=== PATIENT | male | born 1955 | race Caucasian/White ===

== ENCOUNTER 2023-02-04 10:36 | Emergency (ER) | payer OTHER ==
[~2023-02-04] VITALS: Ht 170.2 cm; Wt 83.9 kg
[2023-02-04 10:55] VITALS: BP 133/84
--- NOTE | 2023-02-04 11:33 | NUR ---
TO BED 12 VIA WC NO DISTRESS, NO DIFFICULTY
--- NOTE | 2023-02-04 11:43 | NUR ---
PT SENT BY PCP TO R/O DVT, SWELLING TO BILAT LEGS X 5DYS. NO ACUTE DISTRESS.
[2023-02-04] MEDS ORDERED: cephALEXin 500 MG CAP PO ONE (12:15)
[2023-02-04] MEDS ORDERED: CEPH-588 PO (12:24)
[2023-02-04 12:37] VITALS: BP 128/62
--- NOTE | 2023-02-04 12:38 | NUR ---
The patient's care was reviewed and supervised by ED Agency Nurse 8, RN, RN.
== END 2023-02-04 12:37 | disposition home or self-care (01) ==
LOC: MED 10:36
DX: L03.115 Cellulitis of right lower limb (principal); Z79.899 Other long term (current) drug therapy
CPT/HCPCS: 93971; 99284; Q0092

== ENCOUNTER 2023-04-19 02:26 | Emergency (ER) | payer OTHER ==
[~2023-04-19] VITALS: Ht 172.7 cm; Wt 117.9 kg
[~2023-04-19 02:26] MED LIST: CEPH-588 PO
[2023-04-19 02:33] VITALS: BP 144/96; PULSE 114; RESP 26; TEMP 98.1; O2SAT 94
--- NOTE | 2023-04-19 02:37 | NUR ---
PT. TO BED 03
[2023-04-19 03:14] LABS: ALBUMIN 3.6 g/dL (3.4-5.0); ANION GAP 17.4 (8-16); CREATININE 1.2 mg/dL (0.6-1.3); POTASSIUM 3.4 mmol/L (3.5-5.1); TOTAL BILIRUBIN 0.5 mg/dL (0.0-1.0)
[2023-04-19 03:15] LABS: BASOPHILS # (AUTO) 0.1 K/uL (0.00-0.22); BASOPHILS % (AUTO) 1.1 % (0.0-2.0); EOSINOPHILS # (AUTO) 0.1 K/uL (0-0.4); EOSINOPHILS % (AUTO) 1.1 % (0.0-4.0); HEMATOCRIT 40.5 % (36-52); HEMOGLOBIN 13.8 g/dL (12.0-18.0); LYMPHOCYTES # (AUTO) 3.1 K/uL (2.0-11.5); LYMPHOCYTES % (AUTO) 28.3 % (20.5-51.1); MEAN CORPUSCULAR HEMOGLOBIN 32 pg (27-31); MEAN CORPUSCULAR HGB CONC 34 g/dL (33-37); MEAN CORPUSCULAR VOLUME 93.8 fL (80-94); MONOCYTES # (AUTO) 1.1 K/uL (0.8-1.0); MONOCYTES % (AUTO) 9.6 % (1.7-9.3); NEUTROPHILS # (AUTO) 6.6 K/uL (1.8-7.7); NEUTROPHILS % (AUTO) 59.9 % (42.2-75.2); PLATELET COUNT (AUTO) 240 K/uL (140-450); RED BLOOD CELL COUNT(AUTO) 4.32 MIL/uL (4.20-6.10); RED CELL DISTRIBUTION WIDTH 13.7 % (11.6-13.7)
[2023-04-19 03:33] VITALS: O2SAT 98
[2023-04-19] MEDS ORDERED: cefTRIAXone 1,000 MG VIAL ONE (03:40)
--- NOTE | 2023-04-19 03:40 | NUR ---
67 YO M BIB FAMILY C/O SOB AND CP X 2 DAYS. PT AXO4. 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 PT STATES CP 8/10 NON RADIATING. PT ON 2 L/NC FOR SPO2 92% SUSTAINED. SIDE RAILS UP X2. CALL LIGHT WITHIN REACH. NKDA HX DM1
--- NOTE | 2023-04-19 04:07 | NUR ---
PENDING ADMISSION . PT AND FAMILY AWARE. AT BEDSIDE. PT ON BEDSIDE CARIDAC MONITOR. CALL LIGHT WITHIN REACH OF PT .
[2023-04-19] MEDS ORDERED: AZITHROMYCIN 500 MG in DEXTROSE 5% 250 ML IV ONE (04:35)
[2023-04-19] MEDS ORDERED: METF-346 PO (04:37)
[2023-04-19] MEDS ORDERED: CLON0.1T16 PO (04:37)
[2023-04-19] MEDS ORDERED: ASPI-1822 PO (04:37)
[2023-04-19] MEDS ORDERED: SEMA1PEN3 SQ (04:37)
[2023-04-19] MEDS ORDERED: AMLO10TA PO (04:37)
[2023-04-19] MEDS ORDERED: ATOR10TA PO (04:37)
[2023-04-19] MEDS ORDERED: FENO134C23 PO (04:37)
[2023-04-19] MEDS ORDERED: LOSA100T2 PO (04:37)
[2023-04-19] MEDS ORDERED: AZITHROMYCIN 500 MG INJ VIAL IV ONE (05:04)
[2023-04-19 05:23] LABS: APPEARANCE,URINE CLEAR (CLEAR); BILIRUBIN,URINE NEGATIVE (NEGATIVE); BLOOD, URINE NEGATIVE (NEGATIVE); COLOR,URINE YELLOW (YELLOW); LEUKOCYTE ESTERASE ,URINE NEGATIVE (NEGATIVE); NITRITE, URINE NEGATIVE (NEGATIVE); UGLUCOSE NEGATIVE (NEGATIVE)
[2023-04-19 05:53] VITALS: O2SAT 95
--- NOTE | 2023-04-19 06:05 | NUR ---
BED ASSIG PENDING AFTER CHANGE OF SHIFT. PT AND FAMILY AWARE. PT IS RESTING WITH HOB ELEVATED. 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 AUDIABLE WHEEZES NOTED. SPO2 95% 2L NC. AT BED SIDE
--- NOTE | 2023-04-19 06:05 | NUR ---
COVID AND FLU SWABS COLLECTED AND SENT TO LAB
[2023-04-19 07:30] VITALS: O2SAT 98
--- NOTE | 2023-04-19 07:30 | NUR ---
ASSUMED CARE FROM KATHERINE PERDOMO. PT ON MONITOR AND MADE AWARE OF PLAN OF CARE. VITALS WNL.
[2023-04-19] MEDS ORDERED: CLONIDINE HYDROCHLORIDE 0.1 MG TAB PO ONE (07:40)
[2023-04-19] MEDS ORDERED: ASPIRIN 81 MG TAB.CHEW PO ONE (07:40)
[2023-04-19] MEDS ORDERED: LOSARTAN 50 MG TAB PO SCH (07:40)
--- NOTE | 2023-04-19 08:44 | NUR ---
REPORT OBTAINED BY [employer] CONSERVATORNy THRASHER PTS C/C SOB, AND WHEEZING. PT HAS BEEN DIAGNOSIED WITH PNEUMONIA AND HYPOXIA. PT IS RESTING WITH HOB ELEVATED. 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 AUDIABLE WHEEZES NOTED. SPO2 98% 2L NC. AT BED SIDE
--- NOTE | 2023-04-19 08:45 | NUR ---
PT HAS BEEN MEDICATED PER PROVIDERS ORDERS. CALL LIGHT WITHN IN REACH.
[2023-04-19] MEDS ORDERED: NITROGLYCERIN 0.4 MG TAB SL ONE ×2 (09:04→09:05)
--- NOTE | 2023-04-19 09:07 | NUR ---
PT STATED HE WAS HAVING CHEST PAIN. PT WAS ON MONITOR AND HR WAS 98 AT THAT TIME. MD MADE AWARE AND ORDERED NITRO .4 SUB LINGUAL.
--- NOTE | 2023-04-19 09:25 | NUR ---
PT HAS BEEN CLEARED BY PROVIDER THAT HE IS SAFE FOR DISCHARGE. PT STATES HES FEELIN MUCH BETTER AND IS OK TO BE TRANSFERED. PT STATES HIS PAIN LEVEL HAS GONE DOWN TO A LEVEL 5. PROVIDER HAS REVIEWED EKG AND AGREES PT HAS BEEN CLEARED.
--- NOTE | 2023-04-19 09:30 | NUR ---
Patient discharged to be transfered to [facility]. Pts with v/s stable. Written and verbal after care instructions given and explained. Patient verbalized understanding. Ambulatory with steady gait. All questions addressed prior to discharge. Advised to follow up with PMD.
[2023-04-19 09:32] VITALS: BP 141/90; PULSE 98; RESP 18; TEMP 97.3; O2SAT 99
--- NOTE | 2023-04-19 09:34 | NUR ---
AUBREY WELCH CALLED BACK AND SPOKE WITH CASSY SOTELO, PER AUBREY HE WILL TALK TO THE CHARGE AT [facility] AND EXPLAIN THAT PT IS STABLE TO TAKE OVER. PT HAD REPEAT EKG, SHOWED SINUS TACHYCARDIA WITH ABSENT PAIN AFTER NITRO SUBLINGUAL DOSE.
--- NOTE | 2023-04-19 09:42 | NUR ---
PT HAS BEEN SET UP FOR TRANSFER OF CARE TO [facility] REPORT GIVEN TO ENE TURNER. PT HAS HAD EKG DONE PRIROR TO TRANSFER. PT VITALS SIGNS 141/90 TEMP-97.3, O2 -99 ON 2 LITERS OF AIR. R- 18. PULSE- 98
--- NOTE | 2023-04-19 10:11 | NUR ---
The patient's care was reviewed and supervised by KRISTA COLÓN RN.
== END 2023-04-19 09:32 | disposition short-term general hospital (02) ==
LOC: MED 02:26
DX: J96.01 Acute respiratory failure with hypoxia (principal); J18.9 Pneumonia, unspecified organism; R65.20 Severe sepsis without septic shock; I10 Essential (primary) hypertension; E11.9 Type 2 diabetes mellitus without complications; Z79.899 Other long term (current) drug therapy; Z79.84 Long term (current) use of oral hypoglycemic drugs; Z20.822 Contact with and (suspected) exposure to COVID-19
CPT/HCPCS: 36415; 71045; 80053; 81003; 83605; 83880; 84484; 85025; 87040; 87086; 87426; 87804; 93005; 96365; 96367; 99291; J0456; J0696; Q0092